=== PATIENT | male | born 1990 | race Caucasian/White ===

== ENCOUNTER 2016-09-26 12:39 | Emergency (ER) | payer MEDICAID ==
[~2016-09-26] VITALS: Ht 157.5 cm; Wt 78.0 kg
[~2016-09-26 12:39] MED LIST: DENIES; IBUP-1542 PO
[2016-09-26 12:42] VITALS: Ht 157.5 cm; Wt 78.0 kg
[2016-09-26] MEDS ORDERED: HYDR-902 PO (13:40)
[2016-09-26] MEDS ORDERED: IBUP-1542 PO (13:40)
--- NOTE | 2016-09-26 14:02 | ERD ---
ER Documentation Chief Complaint Date/Time DATE: 09/26/16 TIME: 14:00 Chief Complaint back pain x 3 days HPI Patient is a 25-year-old male with no medical problems who presents with back pain. The back pain started on Thursday morning. It started after he took a hot shower. He has had no fevers. It is middle back pain. He denies any trauma. He denies incontinence. He tried 600 mg of ibuprofen but says that this did not help. He does not currently have a primary doctor. Upon review of old medical records this is the patient's third visit to the ER since 2010. ROS All systems reviewed and are negative except as per history of present illness. Medications Home Meds Active Scripts Hydrocodone/Acetaminophen ([employer] 10-325 Tablet) 1 Each Tablet, 1 TAB PO Q6H Y for PAIN, #7 TAB Prov:THIERRY BUTLER MD 09/26/16 Ibuprofen* (Motrin*) 600 Mg Tab, 600 MG PO Q6H Y for PAIN AND OR ELEVATED TEMP, #30 TAB Prov:THIERRY BUTLER MD 09/26/16 Ibuprofen* (Motrin*) 600 Mg Tab, 600 MG PO Q6, #30 TAB Prov:STUART AVALOS 03/24/15 Reported Medications [Denies] No Conflict Check 05/03/11 Allergies Allergies: Coded Allergies: No Known Drug Allergies (Verified Allergy, 05/03/11) PMhx/Soc Medical and Surgical Hx: pt denies Medical Hx, pt denies Surgical Hx Hx Miscellaneous Medical Probl: Yes (DENIES MEDICAL PROBLEMS) Hx Alcohol Use: No Hx Substance Use: No Hx Tobacco Use: Yes Smoking Status: Unknown if ever smoked FmHx Family History: No diabetes Physical Exam Vitals Vital Signs Date Time Temp Pulse Resp B/P Pulse Ox O2 Delivery O2 Flow Rate FiO2 09/26/16 12:42 98.1 89 18 136/68 99 Physical Exam Const: No acute distress Head: Atraumatic Eyes: Normal Conjunctiva ENT: Normal External Ears, Nose and Mouth. Neck: Full range of motion..~ No meningismus. Resp: Clear to auscultation bilaterally Cardio: Regular rate and rhythm, no murmurs Abd: Soft, non tender, non distended. Normal bowel sounds Skin: No petechiae or rashes Back: Bilateral mid thoracic back pain without line tenderness to palpation Ext: No cyanosis, or edema Neur: Awake and alert, ambulatory in the ER, no weakness of the upper or lower extremities bilaterally Psych: Normal Mood and Affect Procedures/MDM Smoking Cessation Therapy: Pt. was lectured for greater than 3 minutes on the health risks of continued smoking and the benefits of cessation. Patient is a 25-year-old male who presents with middle back pain. The patient has no risk factors for significant because of his back pain and is well- appearing in the emergency department. At this point I doubt pulmonary embolism , aortic dissection, epidural abscess, epidural hematoma, or cauda equina syndrome. I believe outpatient management is appropriate. The patient will be given a prescription for [employer]. The patient can return sooner for any worsening symptoms. He will be given information for the local clinics as he does not currently have a primary doctor. Departure Diagnosis: Primary Impression: Back pain Back pain location: thoracic back pain Chronicity: acute Back pain laterality: bilateral Qualified Code: M54.6 - Acute bilateral thoracic back pain Condition: Fair Patient Instructions: Back Pain (Acute Or Chronic) [facility] Usted se castano hecho un examen mdico de control que le indica que no est en genie condicin que requiera tratamiento urgente en el Departamento de Emergencia. Un estudio ms profundo y el tratamiento de cadet condicin pueden esperar sin ningn riesgo hasta que usted sea atendida/o en el consultorio de cadet mdico o genie cl sridevi. Es responsabilidad suya arreglar genie marcelo para el seguimiento del bao. MANEJO DE CONDICIONES NO URGENTES EN EL FUTURO 1) Si usted tiene un mdico de atencin primaria: Usted debera llamar a cadet mdico de atencin primaria antes de venir al departamento de emergencia. Despus de las horas de consultorio, cadet doctor o cadet asociado/a est disponible por telfono. El mdico o enfermero de emelina en el servicio telefnico puede asesorarle por kamlesh medio para atender el problema, o bao contrario se puede programar genie marcelo. 2) Si usted no tiene un mdico de atencin primaria: Llame al mdico o clnica de referencia que aparece abajo casandra las horas de consultorio para hacer genie marcelo para que le vean. CLINICAS: [facility] [phone] [id number] [facility] [phone] [facility] [phone] [place] [phone] [facility] [facility] [place] [id number] [phone] [facility] [phone] [address] Additional Instructions: Llame al doctor MAANA y eloina genie MARCELO PARA DENTRO DE 2-3 LEONG.Dgale a la secretaria que nosotros le instruimos hacer esta marcelo.Avise o llame si cadet condicin se empeora antes de la marcelo. Regresa aqui si peor o no mejor. THIERRY BUTLER MD Sep 26, 2016 14:01
== END 2016-09-26 14:10 | disposition home or self-care (01) ==
LOC: FTE 12:39
DX: M54.6 Pain in thoracic spine (principal); F17.210 Nicotine dependence, cigarettes, uncomplicated
CPT/HCPCS: 99283